=== PATIENT | male | born 2005 | race Caucasian/White ===

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

== ENCOUNTER → 2023-09-02 09:57 | Outpatient (BNVA) | payer OTHER, SELFPAY | PROVIDERS: Visit Provider Family Medicine Adult Medicine | DX: S97.81XA Crushing injury of right foot, initial encounter (principal); X58.XXXA Exposure to other specified factors, initial encounter; M79.89 Other specified soft tissue disorders | CPT/HCPCS: 73630 ==

== ENCOUNTER 2024-04-27 09:14 | Emergency (ER) | payer OTHER, SELFPAY ==
[2024-04-27 09:18] VITALS: BP 135/90; PULSE 79; RESP 18; TEMP 37.3; O2SAT 96; BMI 56.9
[2024-04-27 09:48] LABS: Basophils % 0.5 %; Eosinophils % 0.1 %; Hematocrit 46.1 % (37-53); Lymphocytes # 1.1 10^3/uL (1.5-6.5); Lymphocytes % 12.9 %; Mean Corpuscular HGB Conc 33.8 g/dL (30-55); Mean Corpuscular Hemoglobin 28.9 pg (27-33); Mean Corpuscular Volume 85.5 fl (82-101); Mean Platelet Volume 10.7 fL (7.4-10.4); Monocytes # 1.7 10^3/uL (0.2-0.9); Monocytes % 20.9 %; Neutrophils # 5.32 10^3/uL (1.8-8.0); Neutrophils % 64.9 %; Nucleated Red Blood Cells % 0 %; Platelet Count 150 10^3/cmm (157-399); Red Blood Count 5.39 10^6/uL (3.85-5.65)
--- NOTE | 2024-04-27 09:52 | W.ED.GENADLT ---
HPI - General Adult General: Chief complaint: Weakness Stated complaint: weak/dizzy Time Seen by Provider: 04/27/24 09:18 Source: patient Mode of arrival: ambulatory Limitations: no limitations History of Present Illness: Patient is a 18-year-old male who presents to ED today with a complaint of fevers, body aches, fatigue, generalized malaise, muscle cramps, generally feeling unwell. He states his daughter was recently diagnosed with influenza. Patient feels like he might be dehydrated. He states he is not urinating as much is normal. He is not having any vomiting or diarrhea. He arrives clinically in no acute distress with stable vital signs. No complaints of significant chest pain or shortness of breath. No abdominal pain. Onset (ago): day(s) Relieving factors: none Exacerbating factors: none Associated symptoms: Deny chest pain, dyspnea, headache(s), nausea, rash, palpitations, syncope or vomiting Treatments prior to arrival: none Related Data Previous Rx's Medication Instructions Recorded albuterol sulfate 90 mcg/actuation 2 puff inhalation Q6H PRN 03/13/24 aerosol inhaler shortness of breath or wheezing #8.5 grams fdnrnynovblsjef-pfmyovwsmrbxiwl-IB 7.5 ml PO Q6H PRN cold symptoms 03/13/24 2 mg-30 mg-10 mg/5 mL oral syrup #160 mL (Bromfed DM) guaifenesin 600 mg tablet, 600 mg PO Q12H #20 tabs 03/13/24 extended release 12 hr Allergies Allergy/AdvReac Type Severity Reaction Status Date / Time No Known Allergies Allergy Verified 03/13/24 14:30 Review of Systems Const: Reports: fever(s), chills, body aches and fatigue Eyes: Denies: change in vision or blurry vision Card: Denies: chest pain, palpitations, irregular heart rhythm, lightheadedness, syncope or dyspnea on exertion Resp: Reports: non-productive cough; Denies: dyspnea, productive cough, wheezing, pain on inspiration or hemoptysis GI: Denies: abdominal pain, nausea, vomiting, heartburn or diarrhea : Denies: flank pain, difficulty urinating, dysuria or urinary frequency Musc: Reports: muscle cramps; Denies: neck pain, back pain, extremity pain, extremity swelling or joint pain Skin/Breast: Denies: rash Neuro: Denies: headache(s), numbness in extremities, weakness in extremities, sensory changes or difficulty walking [facility] ED PFSH: Medical History Crushing injury of foot, right Family History Father Diabetes Mother Hypertension Grandfather CAD (coronary artery disease) Denies family history of Clotting disorder Dementia Hyperlipidemia Psychiatric illness Chronic kidney disease (CKD) Suicide Anesthesia complication Bleeding disorder Family history of premature coronary artery disease Lung disease Cancer Stroke Social History Smoking and tobacco/nicotine status: never used tobacco/nicotine Second hand smoke exposure: No Alcohol intake: never Substance/Drug Use: never Physical Exam Const: COMMON NORMALS: no acute distress, patient oriented x3, no limitations, alert and well nourished GENERAL APPEARANCE: cooperative NUTRITIONAL APPEARANCE: obese morbidly obese (super morbid obesity with a BMI of 57.0) HENMT: COMMON NORMALS: normocephalic and atraumatic HEAD & SCALP: normal to inspection, normocephalic and atraumatic FACE & SINUS: normal facial exam THROAT: posterior oropharynx normal Eye: COMMON NORMALS: no scleral icterus Neck/C-Spine: COMMON NORMALS: full ROM, no lymphadenopathy, supple and no meningeal signs Chest: COMMONS NORMALS: normal inspection of the chest Resp: COMMON NORMALS: normal respiratory effort and clear to auscultation bilaterally AUSCULTATION: clear to auscultation bilaterally Cardio: COMMON NORMALS: regular rate and regular rhythm RATE: regular rate RHYTHM: regular rhythm GI: COMMON NORMALS: Normal to inspection, nondistended, normoactive bowel sounds present, Soft to palpation and non-tender PALPATION: Yes Soft to palpation OTHER: exam limited by body habitus : COMMON NORMALS: Yes no CVA tenderness BLADDER/KIDNEY EXAM: Yes no CVA tenderness Back/Pelvis: COMMON NORMALS: no CVA tenderness and thoracic and lumbar spine normal to inspection Extremity: COMMON NORMALS: normal to inspection GENERAL: Yes normal exam except as noted Neuro: COMMON NORMALS: patient oriented x3, moves all extremities, no focal motor deficits, no sensory deficits noted and gait normal SENSORIUM/ORIENTATION: Yes alert MENINGEAL SIGNS: Yes no meningeal signs Skin: COMMON NORMALS: no rashes or lesions noted GENERAL SKIN EXAM: no rashes or lesions noted Course Vital Signs: Vital signs: Vital Signs Temperature 99.1 F 04/27/24 09:18 Pulse Rate 99 04/27/24 10:13 Respiratory Rate 18 04/27/24 09:18 Blood Pressure 139/81 04/27/24 10:13 Pulse Oximetry 93 04/27/24 10:13 [facility] - General Adult Medical Decision Making Patient clinically appears in no acute distress. He has signs and symptoms of the flu after being exposed to his daughter with the flu. He is positive for influenza A. His vital signs are unremarkable. Blood work overall is nonactionable. He did have a mildly elevated CPK at 381. He was given IV fluids here. Recommend continued hydration at home. He is stable for discharge. Medical Records I reviewed the patient's medical records. Lab Data I reviewed the patient's lab results. 04/27/24 09:40 04/27/24 09:40 Laboratory Results WBC 8.20 10^3/uL (4.5-13.0) 04/27/24 09:40 RBC 5.39 10^6/uL (3.85-5.65) 04/27/24 09:40 Hgb 15.60 g/dL (13.2-15.6) 04/27/24 09:40 Hct 46.1 % (37-53) 04/27/24 09:40 MCV 85.5 fl (82-101) 04/27/24 09:40 MCH 28.9 pg (27-33) 04/27/24 09:40 MCHC 33.8 g/dL (30-55) 04/27/24 09:40 RDW 15.0 % (12.1-15.1) 04/27/24 09:40 Plt Count 150 10^3/cmm (157-399) L 04/27/24 09:40 MPV 10.7 fL (7.4-10.4) H 04/27/24 09:40 Neut % (Auto) 64.9 % 04/27/24 09:40 Lymph % (Auto) 12.9 % 04/27/24 09:40 [place] % (Auto) 20.9 % 04/27/24 09:40 Eos % (Auto) 0.1 % 04/27/24 09:40 Baso % (Auto) 0.5 % 04/27/24 09:40 Neut # (Auto) 5.32 10^3/uL (1.8-8.0) 04/27/24 09:40 Lymph # (Auto) 1.1 10^3/uL (1.5-6.5) L 04/27/24 09:40 [place] # (Auto) 1.7 10^3/uL (0.2-0.9) H 04/27/24 09:40 Eos # (Auto) 0.0 10^3/uL (0.0-0.8) 04/27/24 09:40 Baso # (Auto) 0.0 10^3/uL (0.0-0.1) 04/27/24 09:40 Nucleated RBC % (auto) 0 % 04/27/24 09:40 Nucleated RBCs # 0.0 /100WBC 04/27/24 09:40 Sodium 136 mmol/L (136-145) 04/27/24 09:40 Potassium 3.7 mmol/L (3.5-5.1) 04/27/24 09:40 Chloride 99 mmol/L (98-107) 04/27/24 09:40 Carbon Dioxide 23 mmol/L (22-29) 04/27/24 09:40 Anion Gap 17.7 (5-19) 04/27/24 09:40 BUN 11 mg/dL (6-20) 04/27/24 09:40 Creatinine 1.1 mg/dL (0.7-1.2) 04/27/24 09:40 GFR Calculation 85.3 mL/min (90-130) L 04/27/24 09:40 Glucose 97 mg/dL (65-115) 04/27/24 09:40 Calculated Osmolality 281 mOsm/kg (285-295) L 04/27/24 09:40 Calcium 8.7 mg/dL (8.5-10.5) 04/27/24 09:40 Total Bilirubin 1.2 mg/dL (0.15-1.2) 04/27/24 09:40 AST 24 U/L (0-40) 04/27/24 09:40 ALT 36 U/L (0-41) 04/27/24 09:40 Alkaline Phosphatase 67 U/L (40-130) 04/27/24 09:40 Creatine Kinase 381 U/L (39-308) H* 04/27/24 09:40 Total Protein 6.9 g/dL (6.6-8.7) 04/27/24 09:40 Albumin 3.9 g/dL (3.5-5.2) 04/27/24 09:40 Globulin 3.0 g/dL (1.3-4.6) 04/27/24 09:40 Urine Color Dark yellow (Yellow) A 04/27/24 10:03 Urine Appearance Clear (CLEAR) 04/27/24 10:03 Urine pH 5.5 (5-7) 04/27/24 10:03 Ur Specific [place] 1.032 (1.005-1.030) H 04/27/24 10:03 Urine Protein 1+ (Negative) A 04/27/24 10:03 Urine Glucose (UA) Negative (Normal) 04/27/24 10:03 Urine Ketones Trace (Negative) 04/27/24 10:03 Urine Blood Negative (Negative) 04/27/24 10:03 Urine Nitrate Negative (Negative) 04/27/24 10:03 Urine Bilirubin Negative (Negative) 04/27/24 10:03 Urine Urobilinogen 1.0 mg/dL (Negative) 04/27/24 10:03 Ur Leukocyte Esterase Negative (Negative) 04/27/24 10:03 Urine RBC 0-2 /hpf (0-2) 04/27/24 10:03 Urine WBC 0-5 /hpf (0-5) 04/27/24 10:03 Ur Squamous Epith Cells 0-5 /hpf (0-5) 04/27/24 10:03 Amorphous Sediment Not Reportable 04/27/24 10:03 Urine Bacteria None seen /hpf (NONE) 04/27/24 10:03 Hyaline Casts 0.81 /lpf 04/27/24 10:03 Coronavirus (PCR) Negative (Negative) 04/27/24 09:40 Influenza A (PCR) Positive (Negative) 04/27/24 09:40 Influenza Type B (PCR) Negative (Negative) 04/27/24 09:40 RSV (PCR) Negative (Negative) 04/27/24 09:40 No radiology studies performed this visit Discharge Plan Discharge Patient Disposition: Home Clinical Impression: Influenza A Condition: Stable Prescriptions: No Action albuterol sulfate 90 mcg/actuation HFA aerosol inhaler 2 puff inhalation Q6H PRN (Reason: shortness of breath or wheezing) Qty: 8.5 0RF vdctkzogwxbryrm-stqnpjgnq-NM [Bromfed DM] 2-30-10 mg/5 mL syrup 7.5 ml PO Q6H PRN (Reason: cold symptoms) Qty: 160 0RF guaifenesin 600 mg tablet extended release 12hr 600 mg PO Q12H Qty: 20 0RF Discharge Orders: Discharge ED (Routine); Ordered 04/27/24 Ordered By: Alysa Tellez Patient Instructions: Influenza (DC) Activity Restrictions/Additional Instructions: You need to continue to push water as much as possible at home. Drink water until your urine is clear. Continue with rest. Tylenol and/or Ibuprofen as needed for fevers and body aches. Coding Level of Care Code ED Log Snaker for Angle Palacios
[2024-04-27 10:10] LABS: Alanine Aminotransferase 36 U/L (0-41); Albumin Level 3.9 g/dL (3.5-5.2); Alkaline Phosphatase 67 U/L (40-130); Anion Gap 17.7 (5-19); Aspartate Amino Transferase 24 U/L (0-40); Blood Urea Nitrogen 11 mg/dL (6-20); Calcium 8.7 mg/dL (8.5-10.5); Carbon Dioxide 23 mmol/L (22-29); Chloride 99 mmol/L (98-107); Creatinine Clr Calc Pharmacy 186.0055; Glomerular Filtration Rate 85.3 mL/min (90-130); Glucose 97 mg/dL (65-115); Osmolality Calculated 281 mOsm/kg (285-295); Potassium 3.7 mmol/L (3.5-5.1); Sodium 136 mmol/L (136-145); Total Bilirubin 1.2 mg/dL (0.15-1.2); Total Protein 6.9 g/dL (6.6-8.7)
[2024-04-27 10:11] LABS: Creatine Phosphokinase 381 U/L (39-308)
[2024-04-27 10:12] LABS: Bilirubin Urine Negative (Negative); Blood Urine Negative (Negative); Glucose Urine UA Negative (Normal); Ketones Urine Trace (Negative); Leukocyte Esterase Urine Negative (Negative); Nitrate Urine Negative (Negative); Protein Urine 1+ (Negative); Urine Appearance Clear (CLEAR); Urine Color Dark Yellow (Yellow); pH Urine 5.5 (5-7)
[2024-04-27 10:13] VITALS: BP 139/81; PULSE 99; O2SAT 93
[2024-04-27 10:16] LABS: Add Urine Microscopic? YES; Bacteria Urine None Seen /hpf; Hyaline Casts Urine 0.81 /lpf; RBC Urine 0-2 /hpf (0-2); Squamous Epithelial Cell Urine 0-5 /hpf (0-5); WBC Urine 0-5 /hpf (0-5)
[2024-04-27 10:26] LABS: Specific Gravity, Urine 1.032 (1.005-1.030)
[2024-04-27 10:28] LABS: Covid PCR NEGATIVE (Negative); Influenza A POSITIVE (Negative); Influenza B NEGATIVE (Negative); Respiratory Syncytial Virus Ce NEGATIVE (Negative)
[2024-04-27] MEDS: sodium chloride 0.9% 1,000 ML 999 ML IV (10:53)
[2024-04-27 11:22] VITALS: BP 139/81; PULSE 91; O2SAT 93
[2024-04-27 11:29] VITALS: BP 138/89; PULSE 98; O2SAT 100
== END 2024-04-27 11:31 | disposition home or self-care (01) ==
PROVIDERS: Emergency Provider Physician Assistant
DX: J10.1 Influenza due to other identified influenza virus with other respiratory manifestations (principal); Z11.52 Encounter for screening for COVID-19
CPT/HCPCS: 36415; 80053; 81001; 82550; 85025; 87637; 96360; 99284; J7030